=== PATIENT | male | born 1960 | race Caucasian/White ===

== ENCOUNTER 2019-11-30 10:12 | Emergency (ER) | payer OTHER, SELFPAY | END 2019-11-30 11:55 | disposition home or self-care (01) | PROVIDERS: Emergency Provider Family Medicine; Family Provider Family Medicine; Visit Provider Family Medicine | DX: E11.40 Type 2 diabetes mellitus with diabetic neuropathy, unspecified (principal); I10 Essential (primary) hypertension; Z87.891 Personal history of nicotine dependence; Z79.4 Long term (current) use of insulin | CPT/HCPCS: 36415; 71045; 80053; 85025; 93971; 96372; 99284; J2270 ==

== ENCOUNTER 2019-12-14 08:06 | Outpatient (RCR) | payer OTHER, SELFPAY | END 2020-01-01 23:59 | disposition home or self-care (01) | LOC: WOUND 08:06 | PROVIDERS: Family Provider Family Medicine; PCP Family Medicine; Visit Provider Nurse Practitioner Family | DX: Z09 Encounter for follow-up examination after completed treatment for conditions other than malignant neoplasm (principal) | CPT/HCPCS: 99204; 99212; A6545 ==